=== PATIENT | female | born 1965 | race Asian ===

== ENCOUNTER → 2016-12-14 | Outpatient (CLI) | payer BC ==
[~2016-12-14] MED LIST: ALEVE OTC PRN; ALLERGY MEDICINE PO; CARAFATE1 GM PO; STOOL SOFTENER50 MG PO
--- NOTE | ~2016-12-14 | US5 ---
[facility] A Service of [facility] RADIOLOGY TEXT RESULTS PATIENT: WILTON BRAUN LOCATION: [facility] : 65 UNIT #: [id number] AGE: [address]: Kimberlee Moe MD SEX: F ORDER DR: [id number] [facility] [address] [place], [place] [address] [id number] O MR#: [id number] #: [id number] NAME: WILTON BRAUN : 1965 SEX: F STUDY DATE/TIME: 12/14/2016 7:50 UNIT: [facility] ROOM: STUDY DESCRIPTION: US Abdominal Complete Attending Physician: Kimberlee Moe M.D. Referring Physician: Kimberlee Moe M.D. Ordering Physician: Kimberlee Moe M.D. Primary Care Physician: Kimberlee Moe M.D. MEDICAL IMAGING REPORT This report is preliminary unless electronic signature is present EXAM Abdominal ultrasound complete, 12/14/2016 HISTORY Abnormally elevated liver enzymes on 12/06/2016 FINDINGS The liver is homogeneous in echotexture and demonstrates no cystic or solid mass lesions. The intra and extrahepatic bile ducts are not dilated. The gallbladder is normal with no evidence of cholelithiasis, wall thickening or pericholecystic fluid. The common duct measures 3.0 mm. The pancreas and spleen are normal. The spleen measures 7.1 cm in greatest diameter. The visualized portions of the abdominal aorta and inferior vena cava are within normal limits. The kidneys are normal bilaterally. IMPRESSION Negative abdominal ultrasound. Dictated by... Norman Padilla M.D. THIS IS AN ELECTRONICALLY VERIFIED REPORT Norman Padilla M.D. at 12/14/2016 5:04 PM Yani TD: 12/14/2016 10:05 JOB #: [id number] MEDICAL IMAGING REPORT Page 1 of 1 COPY
== END | disposition home or self-care (01) ==
LOC: CGUS 07:30
DX: R74.8 Abnormal levels of other serum enzymes (principal)
CPT/HCPCS: 76700